=== PATIENT | male | born 1990 | race Caucasian/White ===

== ENCOUNTER 2016-08-21 15:03 | Emergency (ER) | payer MEDICAID ==
[~2016-08-21] VITALS: Ht 167.6 cm; Wt 60.0 kg
[~2016-08-21 15:03] MED LIST: GUAI118L22 PO; NAPR-260 PO
[2016-08-21 15:10] VITALS: Ht 167.6 cm; Wt 60.0 kg
[2016-08-21] MEDS ORDERED: IBUPROFEN 600 MG TAB PO ONE (15:30)
--- NOTE | 2016-08-21 16:10 | RADRPT ---
PROCEDURE: XR Wrist. CLINICAL INDICATION: Left wrist pain TECHNIQUE: PA, lateral and oblique and the scaphoid views of the left wrist were performed. COMPARISON: No prior studies are available for comparison. FINDINGS: Well-corticated lucency through the waist of the scaphoid bone is consistent with an old ununited fr acture. Sclerosis of the proximal greater than distal scaphoid poles unable to exclude avascular ne crosis. The remaining carpal bones are intact. No acute fracture is demonstrated The bones appear well mineralized. The joint spaces are well preserved. No soft tissue abnormalities are identified a nd there is no evidence of radiopaque foreign body. 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 The patient may benefit from follow-up evaluation wit h MRI. Physician Samantha Date Time Electronically viewed and signed by Physician Samantha on 08/21/2016 16:10 /
[2016-08-21] MEDS ORDERED: IBUP-1542 PO (16:19)
--- NOTE | 2016-08-21 16:29 | ERD ---
ER Documentation Chief Complaint Date/Time DATE: 08/21/16 TIME: 16:24 Chief Complaint CO L WRIST PAIN SP "FELL ON IT YESTERDAY" HPI This 26-year-old male, has a left wrist pain after falling off a skateboard yesterday. He has pain primarily the dorsum of the central portion of the left wrist and volar aspect but denies any pain in the scaphoid area. Denies any restricted range of motion weakness. Patient is a history of multiple wrist injuries for which she has not sought medical treatment due to many skateboarding accidents. ROS All systems reviewed and are negative except as per history of present illness. Medications Home Meds Active Scripts Ibuprofen* (Motrin*) 600 Mg Tab, 600 MG PO Q6, #20 TAB Prov:JUANA SERRATO MD 08/21/16 Guaifenesin/Codeine Phosphate (CHERATUSSIN AC SYRUP) 118 Ml Liquid, 10 ML PO QHS for COUGH, #118 ML Prov:SCARLET NASH MD 02/10/16 Naproxen* (Naprosyn*) 500 Mg Tablet, 500 MG PO BID Y for PAIN AND/OR INFLAMMATION, #30 TAB Prov:SCARLET NASH MD 02/10/16 Allergies Allergies: Coded Allergies: guaifenesin (Verified Allergy, Severe, throat swells., 02/10/16) PMhx/Soc Medical and Surgical Hx: pt denies Medical Hx, pt denies Surgical Hx Hx Alcohol Use: No Hx Substance Use: No Hx Tobacco Use: No Physical Exam Vitals Vital Signs Date Time Temp Pulse Resp B/P Pulse Ox O2 Delivery O2 Flow Rate FiO2 08/21/16 15:10 97.8 60 18 119/62 99 Physical Exam Const: [] Alert, [id number] Head: Atraumatic Eyes: Normal Conjunctiva ENT: Normal External Ears, Nose and Mouth. Neck: Full range of motion..~ No meningismus. Resp: Clear to auscultation bilaterally Cardio: Regular rate and rhythm, no murmurs Abd: Soft, non tender, non distended. Normal bowel sounds Skin: No petechiae or rashes Back: No midline or flank tenderness Ext: No cyanosis, or edema. There is mild tenderness in the dorsum and volar aspect of the left wrist joint without deformities. There is no scaphoid tenderness. Patient is full range of motion without appreciable tendon or neurologic deficits. 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 There is some sclerosis suggestive of avascular necrosis. Bones: No fracture appreciated in the area of pain per Joints: [No dislocation] Foreign body: [None]. Impression-old nonunion of scaphoid without acute findings an area of pain. Patient is placed in a left wrist Velcro brace. Patient was advised of the noted incidental nonunion of the scaphoid seen on x-ray. Patient was advised the importance of seeing orthopedist for follow-up and further studies to prevent long-term complications of left wrist function. Patient understands and will seek orthopedic treatment. Patient was otherwise advised to return for fevers, new worsening symptoms otherwise apply ice and ibuprofen for pain. Departure Diagnosis: Primary Impression: Fracture of scaphoid bone of left wrist with malunion Encounter type: subsequent encounter Scaphoid bone location: middle third Fracture type: closed Fracture alignment: nondisplaced Qualified Code: S62.025P - Closed nondisplaced fracture of middle third of scaphoid of left wrist with malunion, subsequent encounter Additional Impression: Wrist injury Encounter type: initial encounter Laterality: left Qualified Code: S69.92XA - Wrist injury, left, initial encounter Condition: Stable Patient Instructions: Navicular Fracture, Wrist (Confirmed), Wrist Sprain Referrals: JOSE CARLOS SINGLETON MD [facility] Additional Instructions: X-ray appears normal in the area of pain and injury today. He appear to have an old fracture of the scaphoid or navicular which shows persistent nonunion which has a risk of long-term complications. See orthopedist for further evaluation and treatment . May need authorization from primary doctor. JUANA SERRATO MD August 21, 2016 16:28
== END 2016-08-21 16:28 | disposition home or self-care (01) ==
LOC: FTE 15:03
DX: S62.025A Nondisplaced fracture of middle third of navicular [scaphoid] bone of left wrist, initial encounter for closed fracture (principal); V00.131A Fall from skateboard, initial encounter; Y92.9 Unspecified place or not applicable
CPT/HCPCS: 29125; 73110; Z7502; Z7610